=== PATIENT | female | born 1965 | race Caucasian/White ===

== ENCOUNTER 2021-05-17 08:54 | Inpatient (IN) | payer BC ==
[~2021-05-17] VITALS: Ht 170.2 cm; Wt 79.6 kg
[~2021-05-17 08:54] MED LIST: ALBU8.5H8 INH; BUPR-86 PO; ESTR1TAB15 PO; FAMO-79 PO; MONT10TA6 PO; PREG150C PO; RIZA10TA20 PO
[2021-05-17] MEDS ORDERED: CHLORHEXIDINE 15 ML UDC PO ONE (10:00)
[2021-05-17] MEDS ORDERED: LACTATED RINGERS 1,000 ML IV SCH (10:00)
[2021-05-17 10:04] LABS: BASOPHILS % (AUTO) 1 % (0-1); EOSINOPHILS % (AUTO) 2 % (1-7); LYMPHOCYTES % (AUTO) 29 % (22-44); MEAN CORPUSCULAR HEMOGLOBIN 31.2 pg (27.0-34.8); MEAN CORPUSCULAR HGB CONC 34.6 g/dL (32.4-35.8); MEAN PLATELET VOLUME 9.1 fL (7.4-10.4); MONOCYTES % (AUTO) 9 % (2-9); NEUTROPHILS % (AUTO) 60 % (42-75); PLATELET COUNT 287 x10^3/uL (130-400); RED BLOOD COUNT 4.74 x10^6/uL (3.82-5.3); RED CELL DISTRIBUTION WIDTH 15.9 % (9.6-15.2)
[2021-05-17 10:21] VITALS: BP 101/69
[2021-05-17 10:36] LABS: INTERNATIONAL NORMALIZED RATIO 0.93 (0.93-1.1); PROTHROMBIN TIME 9.8 Seconds (9.6-11.5)
[2021-05-17] MEDS ORDERED: VANCOMYCIN 1,000 MG ONE (11:11)
[2021-05-17] MEDS ORDERED: EPINEPHRINE 1 MG/ML, 1ML ONE (11:11)
[2021-05-17] MEDS ORDERED: BUPIVACAINE/PF 0.5% ONE (11:11)
[2021-05-17] MEDS ORDERED: SCOPOLAMINE 1MG PATCH TD ONE (11:24)
[2021-05-17] MEDS ORDERED: FENTANYL PF 100 MCG/2ML ONE ×3 (11:25→13:39)
[2021-05-17] MEDS ORDERED: MIDAZOLAM 1 MG/ML, 2ML ONE (11:25)
[2021-05-17] MEDS ORDERED: SCOPOLAMINE 1MG PATCH TD SCH (11:30)
[2021-05-17] MEDS ORDERED: PROPOFOL 50 ML ONE ×2 (11:31→12:42)
[2021-05-17] MEDS ORDERED: NEOSTIGMINE 1 MG/ML, 10ML ONE (12:42)
[2021-05-17] MEDS ORDERED: GLYCOPYRROLATE 0.2MG/1ML, 5ML ONE (12:42)
[2021-05-17] MEDS ORDERED: SUCCINYLCHOLINE 20 MG/ML, 10ML ONE (12:42)
[2021-05-17] MEDS ORDERED: CEFAZOLIN 1,000 MG ONE (12:42)
[2021-05-17] MEDS ORDERED: ROCURONIUM 10MG/ML,5ML ONE (12:42)
[2021-05-17] MEDS ORDERED: DEXAMETHASONE 4 MG/ML, 1ML ONE (12:42)
[2021-05-17] MEDS ORDERED: PROPOFOL 10 MG/ML, 20ML ONE (12:42)
[2021-05-17] MEDS ORDERED: ONDANSETRON 2MG/ML, 2ML ONE (12:42)
[2021-05-17] MEDS: FENTANYL PF 100 MCG/2ML IV PRN ×4 (13:29→14:04)
[2021-05-17] MEDS ORDERED: LORazepam 2 MG/ML, 1ML IVPush PRN (13:30)
[2021-05-17] MEDS ORDERED: MEPERIDINE/PF 100 MG/ML IM PRN (13:30)
[2021-05-17] MEDS ORDERED: MEPERIDINE/PF 25MG/0.5ML IVPush PRN (13:30)
[2021-05-17] MEDS ORDERED: PROMETHAZINE 25 MG/ML, 1ML IVPush PRN (13:30)
[2021-05-17] MEDS ORDERED: METHOCARBAMOL 1,000 MG in DEXTROSE 5% 100 ML IV PRN (13:30)
[2021-05-17] MEDS ORDERED: METHOCARBAMOL 1,000 MG in DEXTROSE 5% 100 ML IV ONE (13:30)
[2021-05-17] MEDS ORDERED: LABETALOL 5MG/ML, 20ML IVPush PRN (13:30)
[2021-05-17] MEDS ORDERED: MAGNESIUM HYDROXIDE 8%, 30ML UDC PO PRN (13:30)
[2021-05-17] MEDS ORDERED: HYDROcodone/APAP 7.5-325MG/15ML UDC PO PRN (13:30)
[2021-05-17] MEDS ORDERED: DIPHENHYDRAMINE 50 MG/ML, 1ML IVPush PRN (13:30)
[2021-05-17] MEDS ORDERED: ONDANSETRON 2MG/ML, 2ML IVPush PRN ×2 (13:30)
[2021-05-17] MEDS ORDERED: OXYcodone 5 MG/5 ML ORAL.SOL UDC PO PRN (13:30)
[2021-05-17] MEDS ORDERED: PHARMACY MAY ADJ FOR RENAL FX MC PRN (13:30)
[2021-05-17] MEDS ORDERED: ALBUTEROL HFA 90 MCG/SPRAY INH PRN (13:30)
[2021-05-17] MEDS ORDERED: SENNA/DOCUSATE TABLET PO PRN (13:30)
[2021-05-17] MEDS ORDERED: RIZATRIPTAN 10MG TABLET PO PRN (13:30)
[2021-05-17] MEDS ORDERED: OXYcodone 5 MG/5 ML ORAL.SOL UDC ONE (13:39)
[2021-05-17] MEDS ORDERED: LORazepam 2 MG/ML, 1ML ONE (13:51)
[2021-05-17] MEDS ORDERED: HYDROmorphone 2 MG/ML, 1ML ONE (14:06)
[2021-05-17] MEDS: HYDROmorphone 1 MG/ML, 1ML INJ IVPush PRN ×3 (14:09→14:35)
[2021-05-17 15:30] VITALS: BP 106/64
[2021-05-17] MEDS ORDERED: NS + 20MEQ KCL 1,000 ML IV SCH (16:00)
[2021-05-17] MEDS: OXYcodone/APAP 5/325MG TABLET PO PRN ×2 (18:14→22:33)
[2021-05-17] MEDS: CEFAZOLIN PMX 1GM/50ML 50 ML IVPB SCH (19:58)
[2021-05-17 20:32] VITALS: BP 106/66
[2021-05-17] MEDS: FAMOTIDINE 20 MG TABLET PO SCH (21:00)
[2021-05-17] MEDS: PREGABALIN 150 MG CAPSULE PO SCH (21:00)
[2021-05-17] MEDS: SODIUM CHLORIDE FLUSH 10ML SYR IVF SCH (21:00)
[2021-05-17] MEDS: BUPROPION 75 MG TABLET PO SCH (21:54)
[2021-05-17] MEDS: GABAPENTIN 300 MG CAPSULE PO SCH (21:54)
[2021-05-18] VITALS (7 sets, daily range): BP systolic 92–133; BP diastolic 53–78
[2021-05-18] MEDS: HYDROcodone/APAP 10/325 MG TABLET PO PRN ×4 (00:51→17:14)
[2021-05-18] MEDS: CEFAZOLIN PMX 1GM/50ML 50 ML IVPB SCH (04:05)
[2021-05-18] MEDS ORDERED: BUPIVACAINE/PF 0.5% ONE (05:52)
[2021-05-18] MEDS ORDERED: EPINEPHRINE 1 MG/ML, 1ML ONE (05:52)
[2021-05-18] MEDS ORDERED: VANCOMYCIN 1,000 MG ONE (05:52)
[2021-05-18 06:27] LABS: ANION GAP 6 mmol/L (5-15); CALCIUM 9.2 mg/dL (8.5-10.1); CHLORIDE 108 mmol/L (98-107); CREATININE 0.68 mg/dL (0.55-1.02)
[2021-05-18 06:33] LABS: BASOPHILS % (AUTO) 0 % (0-1); EOSINOPHILS % (AUTO) 0 % (1-7); LYMPHOCYTES % (AUTO) 7 % (22-44); MEAN CORPUSCULAR HEMOGLOBIN 30.1 pg (27.0-34.8); MEAN CORPUSCULAR HGB CONC 33.4 g/dL (32.4-35.8); MEAN PLATELET VOLUME 9.7 fL (7.4-10.4); MONOCYTES % (AUTO) 6 % (2-9); NEUTROPHILS % (AUTO) 87 % (42-75); PLATELET COUNT 274 x10^3/uL (130-400); RED BLOOD COUNT 4.35 x10^6/uL (3.82-5.3)
[2021-05-18] MEDS ORDERED: MIDAZOLAM 1 MG/ML, 2ML ONE (06:41)
[2021-05-18] MEDS ORDERED: FENTANYL PF 250 MCG/5ML ONE (06:42)
[2021-05-18] MEDS ORDERED: PROPOFOL 50 ML ONE ×2 (06:44→08:15)
[2021-05-18] MEDS ORDERED: hydrALAzine 20 MG/ML, 1ML IV PRN (07:00)
[2021-05-18] MEDS ORDERED: ONDANSETRON 2MG/ML, 2ML IVPush PRN (07:00)
[2021-05-18] MEDS ORDERED: ACETAMINOPHEN 325 MG TABLET PO PRN (07:00)
[2021-05-18] MEDS ORDERED: OXYcodone 5 MG/5 ML ORAL.SOL UDC PO PRN (07:00)
[2021-05-18] MEDS ORDERED: FENTANYL PF 100 MCG/2ML IV PRN (07:00)
[2021-05-18] MEDS ORDERED: EPHEDRINE 50 MG/ML, 1ML IVPush PRN (07:00)
[2021-05-18] MEDS ORDERED: HYDROmorphone 1 MG/ML, 1ML INJ IVPush PRN (07:00)
[2021-05-18] MEDS ORDERED: PROMETHAZINE 25 MG/ML, 1ML IVPush PRN (07:00)
[2021-05-18] MEDS ORDERED: MEPERIDINE/PF 25MG/0.5ML IVPush PRN (07:00)
[2021-05-18] MEDS ORDERED: LABETALOL 5MG/ML, 20ML IV PRN ×2 (07:00→11:30)
--- NOTE | 2021-05-18 07:44 | NUR ---
EVA ARMSTRONG Fall Risk Medications present and NOT receiving anticoagulants. Signed: 05/18/21 at 0745 by Guanaco CONTRERAS
[2021-05-18] MEDS ORDERED: FENTANYL PF 100 MCG/2ML ONE ×4 (07:49→09:59)
[2021-05-18] MEDS ORDERED: BUPIVACAINE/PF 0.25% ONE (07:49)
[2021-05-18] MEDS ORDERED: SUCCINYLCHOLINE 20 MG/ML, 10ML ONE (07:58)
[2021-05-18] MEDS ORDERED: ONDANSETRON 2MG/ML, 2ML ONE (07:58)
[2021-05-18] MEDS ORDERED: DEXAMETHASONE 4 MG/ML, 1ML ONE (07:58)
[2021-05-18] MEDS ORDERED: CEFAZOLIN 1,000 MG ONE (07:58)
[2021-05-18] MEDS ORDERED: EPHEDRINE 50 MG/ML, 1ML ONE (07:58)
[2021-05-18] MEDS ORDERED: PROPOFOL 10 MG/ML, 20ML ONE (07:58)
[2021-05-18] MEDS ORDERED: BUPIVACAINE LIPOSOME/PF 20ML INFIL ONE ×2 (08:45→09:08)
[2021-05-18] MEDS: SODIUM CHLORIDE FLUSH 10ML SYR IVF SCH ×2 (08:58→21:58)
[2021-05-18] MEDS: PREGABALIN 150 MG CAPSULE PO SCH ×2 (08:58→21:54)
[2021-05-18] MEDS: ESTRADIOL 1 MG TABLET PO SCH (08:58)
[2021-05-18] MEDS: GABAPENTIN 300 MG CAPSULE PO SCH ×3 (08:58→21:54)
[2021-05-18] MEDS: BUPROPION 75 MG TABLET PO SCH ×2 (08:59→21:54)
[2021-05-18] MEDS: FAMOTIDINE 20 MG TABLET PO SCH ×2 (08:59→21:54)
[2021-05-18] MEDS: MONTELUKAST 10 MG TABLET PO SCH (08:59)
[2021-05-18] MEDS ORDERED: OXYcodone 5 MG/5 ML ORAL.SOL UDC ONE (10:00)
[2021-05-18] MEDS ORDERED: BISACODYL 10 MG SUPP PR PRN (11:30)
[2021-05-18] MEDS ORDERED: HYDROmorphone 2 MG/ML, 1ML IVPush PRN (11:30)
[2021-05-18] MEDS ORDERED: ONDANSETRON 2MG/ML, 2ML IV PRN (11:30)
[2021-05-18] MEDS ORDERED: MAGNESIUM HYDROXIDE 8%, 30ML UDC PO PRN (11:30)
[2021-05-18] MEDS ORDERED: PROMETHAZINE 25 MG/ML, 1ML IM PRN (11:30)
[2021-05-18] MEDS: D5%-0.9% NACL+KCL 20MEQ 1,000 ML IV SCH ×2 (11:51→21:30)
[2021-05-18] MEDS: CEFAZOLIN PMX 1GM/50ML 50 ML IV SCH (15:15)
[2021-05-18] MEDS: METHOCARBAMOL 750 MG TABLET PO PRN (21:54)
[2021-05-18] MEDS: OXYcodone IR 5MG TABLET PO PRN (21:58)
[2021-05-19 00:08] VITALS: BP 116/74
[2021-05-19] MEDS: CEFAZOLIN PMX 1GM/50ML 50 ML IV SCH ×4 (00:10→23:36)
[2021-05-19] MEDS: OXYcodone IR 5MG TABLET PO PRN ×3 (01:18→07:23)
[2021-05-19 04:25] VITALS: BP 100/65
[2021-05-19 06:11] LABS: BASOPHILS % (AUTO) 0 % (0-1); EOSINOPHILS % (AUTO) 0 % (1-7); LYMPHOCYTES % (AUTO) 14 % (22-44); MEAN CORPUSCULAR HEMOGLOBIN 30.7 pg (27.0-34.8); MEAN CORPUSCULAR HGB CONC 33.9 g/dL (32.4-35.8); MEAN PLATELET VOLUME 9.7 fL (7.4-10.4); MONOCYTES % (AUTO) 10 % (2-9); NEUTROPHILS % (AUTO) 76 % (42-75); PLATELET COUNT 271 x10^3/uL (130-400); RED BLOOD COUNT 3.83 x10^6/uL (3.82-5.3); RED CELL DISTRIBUTION WIDTH 15.2 % (9.6-15.2)
[2021-05-19 06:17] LABS: CHLORIDE 105 mmol/L (98-107)
[2021-05-19 06:23] LABS: ANION GAP 4 mmol/L (5-15); CALCIUM 9.2 mg/dL (8.5-10.1); CREATININE 0.59 mg/dL (0.55-1.02)
[2021-05-19] MEDS: ENOXAPARIN 40 MG/0.4 ML SQ SCH (07:23)
[2021-05-19] MEDS: D5%-0.9% NACL+KCL 20MEQ 1,000 ML IV SCH ×2 (08:00→17:30)
[2021-05-19] MEDS: SODIUM CHLORIDE FLUSH 10ML SYR IVF SCH ×2 (08:19→20:48)
[2021-05-19] MEDS: MONTELUKAST 10 MG TABLET PO SCH (08:20)
[2021-05-19] MEDS: PREGABALIN 150 MG CAPSULE PO SCH ×2 (08:20→20:26)
[2021-05-19] MEDS: GABAPENTIN 300 MG CAPSULE PO SCH ×3 (08:20→20:26)
[2021-05-19] MEDS: ESTRADIOL 1 MG TABLET PO SCH (08:21)
[2021-05-19] MEDS: BUPROPION 75 MG TABLET PO SCH ×2 (08:21→20:26)
[2021-05-19] MEDS: FAMOTIDINE 20 MG TABLET PO SCH ×2 (08:21→20:48)
[2021-05-19] MEDS: SENNA/DOCUSATE TABLET PO SCH (08:22)
[2021-05-19 08:25] VITALS: BP 101/58
[2021-05-19] MEDS: HYDROcodone/APAP 10/325 MG TABLET PO PRN ×3 (12:02→20:27)
[2021-05-19 16:23] VITALS: BP 116/76
[2021-05-19] MEDS: METHOCARBAMOL 750 MG TABLET PO PRN (18:49)
[2021-05-19 19:27] VITALS: BP 112/72
[2021-05-20] MEDS: HYDROcodone/APAP 10/325 MG TABLET PO PRN ×3 (00:52→09:34)
[2021-05-20 01:20] VITALS: BP 113/75
[2021-05-20] MEDS: D5%-0.9% NACL+KCL 20MEQ 1,000 ML IV SCH (01:55)
[2021-05-20] MEDS: ENOXAPARIN 40 MG/0.4 ML SQ SCH (05:05)
[2021-05-20 06:41] LABS: BASOPHILS % (AUTO) 0 % (0-1); EOSINOPHILS % (AUTO) 0 % (1-7); LYMPHOCYTES % (AUTO) 25 % (22-44); MEAN CORPUSCULAR HEMOGLOBIN 30.4 pg (27.0-34.8); MEAN CORPUSCULAR HGB CONC 33.7 g/dL (32.4-35.8); MEAN PLATELET VOLUME 9.7 fL (7.4-10.4); MONOCYTES % (AUTO) 10 % (2-9); NEUTROPHILS % (AUTO) 65 % (42-75); PLATELET COUNT 250 x10^3/uL (130-400); RED BLOOD COUNT 3.92 x10^6/uL (3.82-5.3); RED CELL DISTRIBUTION WIDTH 15.6 % (9.6-15.2)
[2021-05-20] MEDS: CEFAZOLIN PMX 1GM/50ML 50 ML IV SCH (07:03)
[2021-05-20 07:48] VITALS: BP 111/73
[2021-05-20] MEDS ORDERED: HYDR1TAB53 PO (08:37)
[2021-05-20] MEDS ORDERED: CEPH-376 PO (08:37)
[2021-05-20] MEDS ORDERED: METH-640 PO (08:37)
[2021-05-20] MEDS: SODIUM CHLORIDE FLUSH 10ML SYR IVF SCH (09:00)
[2021-05-20] MEDS: SENNA/DOCUSATE TABLET PO SCH (09:00)
[2021-05-20] MEDS: PREGABALIN 150 MG CAPSULE PO SCH (09:31)
[2021-05-20] MEDS: FAMOTIDINE 20 MG TABLET PO SCH (09:31)
[2021-05-20] MEDS: GABAPENTIN 300 MG CAPSULE PO SCH (09:31)
[2021-05-20] MEDS: ESTRADIOL 1 MG TABLET PO SCH (09:31)
[2021-05-20] MEDS: MONTELUKAST 10 MG TABLET PO SCH (09:32)
[2021-05-20] MEDS: BUPROPION 75 MG TABLET PO SCH (09:32)
[2021-05-20] MEDS: METHOCARBAMOL 750 MG TABLET PO PRN (09:33)
[2021-05-20] MEDS ORDERED: CEPHALEXIN 500 MG CAPSULE PO SCH (11:00)
== END 2021-05-20 12:00 | disposition home or self-care (01) | DRG 455 ==
LOC: ORIP 08:54 → 4NE 15:16
PROVIDERS: ADMIT Neurological Surgery; ATTEND Neurological Surgery
PROC: 4A11X4G Monitoring of Peripheral Nervous Electrical Activity, Intraoperative, External Approach (ICD-10-PCS; 2021-05-17)
PROC: 0SG00A0 Fusion of Lumbar Vertebral Joint with Interbody Fusion Device, Anterior Approach, Anterior Column, Open Approach (ICD-10-PCS; principal; 2021-05-17 12:00)
PROC: 0SG00K1 Fusion of Lumbar Vertebral Joint with Nonautologous Tissue Substitute, Posterior Approach, Posterior Column, Open Approach (ICD-10-PCS; 2021-05-19)
PROC: 01NB0ZZ Release Lumbar Nerve, Open Approach (ICD-10-PCS; 2021-05-19)
PROC: 0SG00A0 Fusion of Lumbar Vertebral Joint with Interbody Fusion Device, Anterior Approach, Anterior Column, Open Approach (ICD-10-PCS; 2021-05-19)
PROC: 4A11X4G Monitoring of Peripheral Nervous Electrical Activity, Intraoperative, External Approach (ICD-10-PCS; 2021-05-19)
DX: M48.061 Spinal stenosis, lumbar region without neurogenic claudication (principal); M43.16 Spondylolisthesis, lumbar region; M47.9 Spondylosis, unspecified; M51.16 Intervertebral disc disorders with radiculopathy, lumbar region
CPT/HCPCS: 36415; 72100; S0020; 72131; 80048; 85025; 85610; 85730; 86850; 86900; 95938; 95941; C1713; C1729; C1776; C9290; G0378; J0171; J0690; J1100; J1170; J1650; J2250; J2405; J2704; J2710; J3010; J3370; J3480; C1760; C1762; C1769; J0330; J2060; J2800; J7120